=== PATIENT | female | born 1950 | race Caucasian/White ===

== ENCOUNTER 2018-09-25 17:26 | Inpatient (IN) | payer MEDICARE, OTHER ==
[~2018-09-25] VITALS: Ht 160 cm; Wt 54.0 kg
[2018-09-25] MEDS ORDERED: PROPRANOLOL (17:39)
[2018-09-25] MEDS ORDERED: MIRT15TA PO (17:39)
[2018-09-25] MEDS ORDERED: LOSARTAN/HCTZ (17:39)
[2018-09-25] MEDS ORDERED: RISP2TAB5 PO (17:39)
--- NOTE | 2018-09-25 17:40 | NUR ---
Pt was triaged and currently waiting in the ambulance gurney in the hallway, there are no ER beds available at this time.
--- NOTE | 2018-09-25 17:54 | NUR ---
PT PLACED IN ROOM 3, SECURITY CALLED FOR 1:1 OBSERVATION.
--- NOTE | 2018-09-25 17:56 | NUR ---
ECOMMERCE ANALYST AT BEDSIDE FOR 1:1 OBSERVATION.
[2018-09-25 18:32] LABS: BASOPHILS # (AUTO) 0.1 K/uL (0.0-8.0); BASOPHILS % (AUTO) 0.4 % (0.0-2.0); EOSINOPHILS % (AUTO) 0.3 % (0.0-7.0); HEMOGLOBIN 13.7 g/dL (10.9-14.3); LYMPHOCYTES % (AUTO) 15.3 % (20.5-51.5); MEAN CORPUSCULAR HGB CONC 31 g/dL (32.3-35.6); MEAN CORPUSCULAR VOLUME 70.6 fL (75.5-95.3); MONOCYTES # (AUTO) 0.9 K/uL (2.0-10.0); MONOCYTES % (AUTO) 7.1 % (0.0-11.0); NEUTROPHILS % (AUTO) 76.9 % (38.5-71.5); PLATELET COUNT (AUTO) 388 K/uL (179-408); RED BLOOD CELL COUNT(AUTO) 6.23 MIL/uL (3.63-4.92)
[2018-09-25 18:36] LABS: CARBON DIOXIDE 25 mmol/L (21-32); CHLORIDE 102 mmol/L (98-107); CREATININE 1.3 mg/dL (0.6-1.3); GLUCOSE 144 mg/dL (74-106); POTASSIUM 3.3 mmol/L (3.5-5.1); UREA NITROGEN, BLOOD 17 mg/dL (7-18)
[2018-09-25 18:41] LABS: ALANINE AMINOTRANSFERASE 20 U/L (14-59); ALKALINE PHOSPHATASE 72 U/L (50-136); ASPARTATE AMINOTRANSFERASE 19 U/L (15-37); BILIRUBIN,DIRECT 0.2 mg/dL (0.0-0.2); BILIRUBIN,TOTAL 0.6 mg/dL (0.2-1.0)
[2018-09-25 18:42] LABS: ACETAMINOPHEN < 2.0 ug/mL (10-30)
[2018-09-25 18:43] LABS: ETHANOL < 3 MG/DL (0-0)
[2018-09-25] MEDS ORDERED: POTASSIUM CHLORIDE 20 MEQ TAB.PRT.SR ONE (18:50)
--- NOTE | 2018-09-25 18:54 | NUR ---
ADMITTING REPORT GIVEN TO TONYA CHEN.
--- NOTE | 2018-09-25 18:54 | NUR ---
Pt. admitted to GPS, under care of Dr. CASTILLO/CASH. Belongs List completed
[2018-09-25] MEDS ORDERED: POTASSIUM CHLORIDE 20 MEQ TAB.PRT.SR PO ONE (19:00)
--- NOTE | 2018-09-25 19:35 | NUR ---
GPS:Pt. Admitted 68 year old black female to GPS, under care of Dr. CASTILLO/CASH for 5150/dto. alert to name only. confused to place and time. refused v/s. uncooperative with medications and care. refused body check. refused to answer admitting questions. assisted in bed.bed alarm on for safety. Belongs List completed. continue plan of care.
[2018-09-25] MEDS ORDERED: MAGNESIUM HYDROXIDE 30 ML LIQUID UDC PO PRN (20:30)
[2018-09-25] MEDS ORDERED: ACETAMINOPHEN 325 MG TABLET PO PRN (20:30)
[2018-09-25] MEDS ORDERED: MAG HYDROX/AL HYDROX/SIMETH 30 ML LIQUID UDC PO PRN (20:30)
[2018-09-25] MEDS ORDERED: LORAZEPAM 1 MG TABLET PO PRN (20:30)
[2018-09-25] MEDS ORDERED: ZOLPIDEM 5 MG TABLET PO PRN (20:30)
--- NOTE | 2018-09-26 06:36 | NUR ---
GPS: Remain uncooperative with care and v/s. wondering around in her room. confused and forgetful. slept 7:15 hrs through the night. no agitation noted this morning. continue plan of care.
[2018-09-26 07:11] LABS: BASOPHILS # (AUTO) 0.2 K/uL (0.0-8.0); BASOPHILS % (AUTO) 1.2 % (0.0-2.0); EOSINOPHILS # (AUTO) 0.1 K/uL (0.0-0.7); EOSINOPHILS % (AUTO) 0.5 % (0.0-7.0); HEMATOCRIT 45.9 % (31.2-41.9); HEMOGLOBIN 14.3 g/dL (10.9-14.3); LYMPHOCYTES % (AUTO) 21.4 % (20.5-51.5); MEAN CORPUSCULAR HEMOGLOBIN 22.2 uug (24.7-32.8); MEAN CORPUSCULAR HGB CONC 31 g/dL (32.3-35.6); MEAN CORPUSCULAR VOLUME 71.1 fL (75.5-95.3); MONOCYTES % (AUTO) 7.1 % (0.0-11.0); NEUTROPHILS # (AUTO) 9.8 K/uL (1.8-8.9); NEUTROPHILS % (AUTO) 69.8 % (38.5-71.5); PLATELET COUNT (AUTO) 387 K/uL (179-408); RED BLOOD CELL COUNT(AUTO) 6.46 MIL/uL (3.63-4.92)
[2018-09-26 07:23] LABS: CREATININE 1.2 mg/dL (0.6-1.3); POTASSIUM 3.7 mmol/L (3.5-5.1)
[2018-09-26 07:30] VITALS: BP 138/67
[2018-09-26 10:04] LABS: BAND % (MANUAL) 2 % (0-10); EOSINOPHILS % (MANUAL) 1 % (0-8); LYMPHOCYTES % (MANUAL) 24 % (20-40); MONOCYTES % (MANUAL) 7 % (2-10); MYELOCYTES % 1 % (0-0); NEUTROPHILS % (MANUAL) 65 % (42-75)
[2018-09-26] MEDS: ESCITALOPRAM OXALATE 10 MG TABLET PO SCH (10:11)
[2018-09-26] MEDS: LOSARTAN POTASSIUM 50 MG TABLET PO SCH (10:13)
--- NOTE | 2018-09-26 14:18 | NUR ---
Initial Discharge Instructions: Patient currently lives at home with her daughter [[address], [address] [place] [address]; [phone]]. Per patient, she would like to return there upon discharge. SW will speak with patient's daughter, Maulik ([phone]). LENIN will continue to collaborate with pt, family, and MD regarding most appropriate discharge plans for this patient. SW will form a safe and proper discharge.
--- NOTE | 2018-09-26 15:33 | NUR ---
Firearms Report: track service worker completed and submitted [employer] Firearms Report for 5150 DTO certification.
[2018-09-26 16:00] VITALS: BP 113/68
--- NOTE | 2018-09-26 17:43 | NUR ---
Pt has been hypoactive with limited peer interaction. She was guarded upon approach at start of shift but become increasingly trustful and comfortable talking to staff as the day progressed.Affect is flat be smiles briefly when verbally engaged. She is compliant with po medication .Tolerated medication with no side effect noted or discomfort voiced by patient. She however has limited insight into her illness. has present no behavioral or management issues.
[2018-09-26 20:00] VITALS: BP 142/73
[2018-09-26] MEDS: QUETIAPINE FUMARATE 25 MG TABLET PO SCH (20:19)
[2018-09-27 07:30] VITALS: BP 95/69
[2018-09-27] MEDS: ESCITALOPRAM OXALATE 10 MG TABLET PO SCH (09:00)
[2018-09-27] MEDS: LOSARTAN POTASSIUM 50 MG TABLET PO SCH (09:01)
[2018-09-27 16:04] VITALS: BP 108/54
[2018-09-27] MEDS: QUETIAPINE FUMARATE 25 MG TABLET PO SCH (21:14)
[2018-09-27 21:18] VITALS: BP 135/67
[2018-09-28 07:30] VITALS: BP 124/61
[2018-09-28] MEDS: LOSARTAN POTASSIUM 50 MG TABLET PO SCH (09:09)
[2018-09-28] MEDS: ESCITALOPRAM OXALATE 10 MG TABLET PO SCH (09:09)
[2018-09-28 15:53] VITALS: BP 124/67
[2018-09-28 19:57] VITALS: BP 151/69
[2018-09-28] MEDS: QUETIAPINE FUMARATE 25 MG TABLET PO SCH (20:17)
[2018-09-29 07:30] VITALS: BP 122/60
[2018-09-29] MEDS: ESCITALOPRAM OXALATE 10 MG TABLET PO SCH (08:32)
[2018-09-29] MEDS: LOSARTAN POTASSIUM 50 MG TABLET PO SCH (08:33)
[2018-09-29] MEDS: METFORMIN HCL 500 MG TABLET PO SCH ×2 (09:42→18:11)
[2018-09-29 10:23] LABS: *BILIRUBIN,URIN NEGATIVE (NEGATIVE); *BLOOD, URINE NEGATIVE (NEGATIVE); *COLOR,URINE YELLOW (YELLOW); *KETONES,URINE NEGATIVE (NEGATIVE); *UROBILINOGEN,URINE 0.2 E.U./dl (NORMAL); LEUKOCYTE ESTERASE ,URINE 2+ (NEGATIVE); NITRITE, URINE NEGATIVE (NEGATIVE); PH,URINE 8.5 (5.0-8.0); UGLUCOSE TRACE (NEGATIVE)
[2018-09-29 10:36] LABS: *CLARITY,URINE HAZY (CLEAR)
[2018-09-29 10:39] LABS: WBC,URINE 80-100 /HPF (0-3)
[2018-09-29 10:41] LABS: BACTERIA,URINE FEW /HPF (NONE SEEN); MUCUS,URINE NONE SEEN /LPF (0-FEW); SQUAMOUS EPITHELIAL CELL,UR MANY /HPF (NONE SEEN)
[2018-09-29 14:18] LABS: BASOPHILS # (AUTO) 0.2 K/uL (0.0-8.0); BASOPHILS % (AUTO) 1.6 % (0.0-2.0); EOSINOPHILS # (AUTO) 0.1 K/uL (0.0-0.7); EOSINOPHILS % (AUTO) 0.5 % (0.0-7.0); HEMATOCRIT 44.4 % (31.2-41.9); HEMOGLOBIN 13.7 g/dL (10.9-14.3); LYMPHOCYTES # (AUTO) 2.5 K/uL (20.0-40.0); LYMPHOCYTES % (AUTO) 20.7 % (20.5-51.5); MEAN CORPUSCULAR HEMOGLOBIN 22.1 uug (24.7-32.8); MEAN CORPUSCULAR HGB CONC 31 g/dL (32.3-35.6); MEAN CORPUSCULAR VOLUME 71.4 fL (75.5-95.3); MONOCYTES # (AUTO) 0.7 K/uL (2.0-10.0); MONOCYTES % (AUTO) 5.5 % (0.0-11.0); NEUTROPHILS # (AUTO) 8.7 K/uL (1.8-8.9); NEUTROPHILS % (AUTO) 71.7 % (38.5-71.5); PLATELET COUNT (AUTO) 362 K/uL (179-408); RED BLOOD CELL COUNT(AUTO) 6.22 MIL/uL (3.63-4.92); WHITE BLOOD COUNT (AUTO) 12.1 K/uL (3.8-11.8)
[2018-09-29 14:44] LABS: EOSINOPHILS % (MANUAL) 2 % (0-8); LYMPHOCYTES % (MANUAL) 10 % (20-40); MONOCYTES % (MANUAL) 6 % (2-10); NEUTROPHILS % (MANUAL) 82 % (42-75)
[2018-09-29 15:24] VITALS: BP 127/71
[2018-09-29 20:15] VITALS: BP 128/82
[2018-09-29] MEDS: QUETIAPINE FUMARATE 25 MG TABLET PO SCH (20:20)
--- NOTE | 2018-09-30 06:48 | NUR ---
ESTER Reyes notified through exchange regarding positive UA, awaiting call back.
[2018-09-30 07:30] VITALS: BP 144/72
[2018-09-30] MEDS: METFORMIN HCL 500 MG TABLET PO SCH ×2 (09:01→17:18)
[2018-09-30] MEDS: ESCITALOPRAM OXALATE 10 MG TABLET PO SCH (09:01)
[2018-09-30] MEDS: LOSARTAN POTASSIUM 50 MG TABLET PO SCH (09:02)
--- NOTE | 2018-09-30 14:23 | NUR ---
Discharge Planning Note: SW placed call to patient's daughterMaulik ([phone]) to discuss discharge planning. Pt daughter confirmed that patient will be able to return home with her when ready for discharge. Pt daughter expressed need for medication management for the pt, and SW provided education about Home Health services available to the pt. SW will arrange home health upon discharge. Daughter agreeable. SW will continue to follow-up.
[2018-09-30 16:23] VITALS: BP 155/81
[2018-09-30] MEDS ORDERED: INSULIN REGULAR, HUMAN 300 UNIT/3 ML VIAL SQ PRN (21:00)
[2018-09-30] MEDS ORDERED: DEXTROSE 50% 50 ML DISP.SYRIN IV PRN (21:00)
[2018-09-30] MEDS: QUETIAPINE FUMARATE 25 MG TABLET PO SCH (21:05)
[2018-09-30] MEDS: BLOOD SUGAR DIAGNOSTIC 1 EACH STRIP VI SCH (21:59)
[2018-09-30] MEDS: CEphaleXIN 500 MG CAPSULE PO SCH ×2 (22:00→22:24)
[2018-09-30] MEDS ORDERED: CEphaleXIN 500 MG CAPSULE ONE (22:20)
--- NOTE | 2018-10-01 05:32 | NUR ---
Received Pt sitting up in bed awake staring at the ceiling. A+Ox3 with poor insight into situation. Pt is guarded and gives limited disclosure. Exhibits restricted affect, appears depressed, paranoid, and internally preoccupied. Compliant with HS Seroquel with prompting. BP elevated at beginning of shift, Pt refused prn medication, Pt educated on risks and benefits, but still refused. Keflex 500mg ordered by MD for UTI, Pt refused. When asked why she refused, Pt replied, "I just need to think about it, maybe in the morning." Education provided regarding UTI disease process and the need for antibiotics to clear the infection, Pt still refused. Accu check ordered ACHS for A1C of 6.9. Pt educated regarding diabetes disease process. Pt refused HS accu check. At approximately 2300, Pt saw a caregiver that came in with a new admission and thought it was her daughter. Pt was convinced this person was her daughter and here to take her home. Pt was informed that it was not her daughter and there are no plans for discharge at this time, especially in the middle of the night. Pt refused to believe that she was not leaving and stood in the hallway for 3 hours with all of her belongings in her arms waiting to leave. Pt was educated about her discharge plan and encouraged to rest, but Pt refused until 0200 when she finally went to bed. Pt sleeping, breathing even and unlabored.
[2018-10-01] MEDS: CEphaleXIN 500 MG CAPSULE PO SCH ×3 (06:00→22:59)
[2018-10-01] MEDS: BLOOD SUGAR DIAGNOSTIC 1 EACH STRIP VI SCH ×4 (06:36→21:00)
--- NOTE | 2018-10-01 06:37 | NUR ---
Remains paranoid and in denial regarding disease process. Pt refused AM accu check, stated, "I am not diabetic." Pt also refused 0600 Keflex. chemist biological aware.
[2018-10-01 07:30] VITALS: BP 152/81
[2018-10-01] MEDS: METFORMIN HCL 500 MG TABLET PO SCH ×3 (08:00→18:20)
[2018-10-01] MEDS: ESCITALOPRAM OXALATE 10 MG TABLET PO SCH ×2 (09:00→10:54)
[2018-10-01] MEDS: LOSARTAN POTASSIUM 50 MG TABLET PO SCH (09:21)
[2018-10-01 16:00] VITALS: BP 131/55
[2018-10-01 20:00] VITALS: BP 152/68
[2018-10-01] MEDS: QUETIAPINE FUMARATE 25 MG TABLET PO SCH (21:00)
[2018-10-02] MEDS: CEphaleXIN 500 MG CAPSULE PO SCH ×3 (06:00→21:28)
[2018-10-02] MEDS: BLOOD SUGAR DIAGNOSTIC 1 EACH STRIP VI SCH ×4 (06:30→20:05)
[2018-10-02 07:27] LABS: BASOPHILS # (AUTO) 0.1 K/uL (0.0-8.0); BASOPHILS % (AUTO) 0.7 % (0.0-2.0); EOSINOPHILS % (AUTO) 0.3 % (0.0-7.0); HEMATOCRIT 40.7 % (31.2-41.9); HEMOGLOBIN 12.6 g/dL (10.9-14.3); LYMPHOCYTES # (AUTO) 1.8 K/uL (20.0-40.0); LYMPHOCYTES % (AUTO) 13.3 % (20.5-51.5); MEAN CORPUSCULAR HEMOGLOBIN 21.8 uug (24.7-32.8); MEAN CORPUSCULAR HGB CONC 31 g/dL (32.3-35.6); MEAN CORPUSCULAR VOLUME 70.4 fL (75.5-95.3); MONOCYTES # (AUTO) 0.9 K/uL (2.0-10.0); MONOCYTES % (AUTO) 6.6 % (0.0-11.0); NEUTROPHILS # (AUTO) 10.9 K/uL (1.8-8.9); NEUTROPHILS % (AUTO) 79.1 % (38.5-71.5); PLATELET COUNT (AUTO) 347 K/uL (179-408); RED BLOOD CELL COUNT(AUTO) 5.78 MIL/uL (3.63-4.92); WHITE BLOOD COUNT (AUTO) 13.7 K/uL (3.8-11.8)
[2018-10-02 07:30] VITALS: BP 162/78
[2018-10-02 07:49] LABS: BILIRUBIN,TOTAL 0.5 mg/dL (0.2-1.0); CREATININE 1.2 mg/dL (0.6-1.3); MAGNESIUM 1.7 mg/dL (1.8-2.4); POTASSIUM 4.1 mmol/L (3.5-5.1); TOTAL PROTEIN, SERUM 7.3 g/dL (6.4-8.2)
[2018-10-02 08:00] LABS: BAND % (MANUAL) 2 % (0-10); LYMPHOCYTES % (MANUAL) 21 % (20-40); MONOCYTES % (MANUAL) 5 % (2-10); NEUTROPHILS % (MANUAL) 72 % (42-75)
[2018-10-02] MEDS: METFORMIN HCL 500 MG TABLET PO SCH ×2 (09:17→17:58)
[2018-10-02] MEDS: ESCITALOPRAM OXALATE 10 MG TABLET PO SCH (09:17)
[2018-10-02] MEDS: LOSARTAN POTASSIUM 50 MG TABLET PO SCH (09:18)
[2018-10-02 09:39] LABS: THYROID STIMULATING HORMONE 2.265 mIU/mL (0.358-3.740)
[2018-10-02] MEDS ORDERED: CLONIDINE HCL 0.1 MG TABLET PO PRN (11:30)
[2018-10-02] MEDS ORDERED: MAGNESIUM OXIDE 400 MG TABLET PO ONE (11:30)
[2018-10-02] MEDS: FERROUS SULFATE 325 MG TABEC PO SCH (12:43)
[2018-10-02 16:00] VITALS: BP 133/73
[2018-10-02 20:00] VITALS: BP 119/74
[2018-10-02] MEDS: SIMVASTATIN 10 MG TABLET PO SCH (20:10)
[2018-10-02] MEDS: QUETIAPINE FUMARATE 25 MG TABLET PO SCH (20:10)
[2018-10-03] MEDS: CEphaleXIN 500 MG CAPSULE PO SCH ×3 (05:28→21:07)
[2018-10-03] MEDS: BLOOD SUGAR DIAGNOSTIC 1 EACH STRIP VI SCH ×4 (06:19→20:36)
[2018-10-03 07:30] VITALS: BP 143/64
[2018-10-03] MEDS: ESCITALOPRAM OXALATE 10 MG TABLET PO SCH (09:28)
[2018-10-03] MEDS: FERROUS SULFATE 325 MG TABEC PO SCH (09:28)
[2018-10-03] MEDS: LOSARTAN POTASSIUM 50 MG TABLET PO SCH (09:29)
[2018-10-03] MEDS: METFORMIN HCL 500 MG TABLET PO SCH ×2 (09:32→18:09)
[2018-10-03 16:00] VITALS: BP 131/65
[2018-10-03 20:21] VITALS: BP 145/70
[2018-10-03] MEDS: SIMVASTATIN 10 MG TABLET PO SCH (20:31)
[2018-10-03] MEDS: QUETIAPINE FUMARATE 25 MG TABLET PO SCH (20:31)
[2018-10-04] MEDS: CEphaleXIN 500 MG CAPSULE PO SCH ×4 (05:55→21:06)
[2018-10-04 07:30] VITALS: BP 129/76
[2018-10-04] MEDS: METFORMIN HCL 500 MG TABLET PO SCH ×2 (08:00→17:30)
[2018-10-04] MEDS: FERROUS SULFATE 325 MG TABEC PO SCH (09:56)
[2018-10-04] MEDS: LOSARTAN POTASSIUM 50 MG TABLET PO SCH (09:56)
[2018-10-04] MEDS: ESCITALOPRAM OXALATE 10 MG TABLET PO SCH (09:56)
[2018-10-04 20:49] VITALS: BP 143/74
[2018-10-04] MEDS: QUETIAPINE FUMARATE 25 MG TABLET PO SCH (21:07)
[2018-10-04] MEDS: SIMVASTATIN 10 MG TABLET PO SCH (21:07)
[2018-10-05] MEDS: CEphaleXIN 500 MG CAPSULE PO SCH ×3 (05:15→21:47)
[2018-10-05 07:30] VITALS: BP 126/66
[2018-10-05] MEDS: ESCITALOPRAM OXALATE 10 MG TABLET PO SCH (10:21)
[2018-10-05] MEDS: LOSARTAN POTASSIUM 50 MG TABLET PO SCH (10:21)
[2018-10-05] MEDS: METFORMIN HCL 500 MG TABLET PO SCH ×2 (10:21→17:41)
[2018-10-05] MEDS: FERROUS SULFATE 325 MG TABEC PO SCH (10:21)
[2018-10-05 16:43] VITALS: BP 121/86
[2018-10-05 20:27] VITALS: BP 126/76
[2018-10-05] MEDS: SIMVASTATIN 10 MG TABLET PO SCH (21:00)
[2018-10-05] MEDS: QUETIAPINE FUMARATE 25 MG TABLET PO SCH (21:00)
--- NOTE | 2018-10-05 23:00 | NUR ---
RECEIVED RESIDENT IN BED.SHE APPEARED GUARDED,WITHDRAWN AND DEPRESSED. REFUSED TO ENGAGE WITH STAFF AND REFUSED HER MEDS WELL. FOR UTI.SHE SAID 'I DON'T CARE'.RISKS AND BENEFIT X 3 WAS EXPLAINED TO HER ESPECIALLY REGARDING THE KEFLEX.VISUAL CHECKS MADE TO HER ROOM FOR SAFETY. WILL CONTINUE TO MONITOR.
[2018-10-06] MEDS: CEphaleXIN 500 MG CAPSULE PO SCH ×2 (06:00→08:58)
--- NOTE | 2018-10-06 06:40 | NUR ---
SLEPT FOR APPROX.10;30HRS.REFUSED ALL MEDS. SAT IN BED THIS MORNING THOUGH SHE WAS IN MEDITATION.
[2018-10-06] MEDS: METFORMIN HCL 500 MG TABLET PO SCH ×2 (08:00→17:46)
[2018-10-06] MEDS: ESCITALOPRAM OXALATE 10 MG TABLET PO SCH (08:37)
[2018-10-06] MEDS: FERROUS SULFATE 325 MG TABEC PO SCH (08:38)
[2018-10-06] MEDS: LOSARTAN POTASSIUM 50 MG TABLET PO SCH ×2 (08:38→15:27)
--- NOTE | 2018-10-06 15:06 | NUR ---
GPS: Nursing Notes: Thought Disorder: Patient is awake and responding to her name, internally preoccupied by doing bizarre behaviors, running around the chair, laying down on the floor and then sitting on the chair, when questioned regarding her behavior, patient started to stare at the ceiling and moving her lips, and then shouted "stopped...", during therapeutic group started to bump her head against the table while coloring, medicated with Ativan PO PRN, continue to monitor for safety, on mendez chair near the nursing station for close observation, patient continue to be shouting "Help....Help...", but would not say anything else, psychotic behavior, restless behavior, continue to monitor for safety, continue with treatment plan.
[2018-10-06] MEDS: LEVOFLOXACIN 250 MG TABLET PO SCH (15:26)
[2018-10-06] MEDS ORDERED: OLANZAPINE 10 MG VIAL IM STA ×3 (15:46→16:04)
--- NOTE | 2018-10-06 16:17 | NUR ---
GPS: Nursing Notes: Chemical Restraint: Patient is awake and responding to her name, impaired judgment, responding to internal stimuli by doing bizarre behavior, running around the chair, laying down on the floor, then getting up and sitting on the chair, when questioned regarding her behavior, patient would stare at the ceiling, selectively mute to questions, but overly disruptive by shouting "Help..Help..", placed near the nursing station on the mendez chair, patient continue to try to bump her head against the table, sitting back hard against the mendez chair, unable to be redirected, restless behavior, unable to contract for safety, Dr Valdivia called and ordered Zyprexa 10mg IM STAT, medication IM given at this time, V/S: 156/76, 117, 98%, 0/10, 18, 98.0, continue to monitor for safety, continue with treatment plan.
[2018-10-06 20:00] VITALS: BP 116/66
[2018-10-06] MEDS: SIMVASTATIN 10 MG TABLET PO SCH (21:41)
[2018-10-06] MEDS: QUETIAPINE FUMARATE 25 MG TABLET PO SCH (21:41)
[2018-10-07 07:22] LABS: BASOPHILS # (AUTO) 0.1 K/uL (0.0-8.0); BASOPHILS % (AUTO) 0.7 % (0.0-2.0); EOSINOPHILS # (AUTO) 0.1 K/uL (0.0-0.7); EOSINOPHILS % (AUTO) 0.5 % (0.0-7.0); HEMOGLOBIN 14.1 g/dL (10.9-14.3); LYMPHOCYTES # (AUTO) 1.8 K/uL (20.0-40.0); LYMPHOCYTES % (AUTO) 15.9 % (20.5-51.5); MEAN CORPUSCULAR HEMOGLOBIN 22.2 uug (24.7-32.8); MEAN CORPUSCULAR HGB CONC 31 g/dL (32.3-35.6); MONOCYTES # (AUTO) 0.8 K/uL (2.0-10.0); MONOCYTES % (AUTO) 7.2 % (0.0-11.0); NEUTROPHILS # (AUTO) 8.4 K/uL (1.8-8.9); NEUTROPHILS % (AUTO) 75.7 % (38.5-71.5); PLATELET COUNT (AUTO) 432 K/uL (179-408); RED BLOOD CELL COUNT(AUTO) 6.34 MIL/uL (3.63-4.92); WHITE BLOOD COUNT (AUTO) 11.1 K/uL (3.8-11.8)
[2018-10-07 07:30] VITALS: BP 122/79
[2018-10-07 07:33] LABS: BILIRUBIN,TOTAL 0.5 mg/dL (0.2-1.0); CREATININE 1.2 mg/dL (0.6-1.3); MAGNESIUM 1.8 mg/dL (1.8-2.4); PHOSPHOROUS 2.6 mg/dL (2.5-4.9); POTASSIUM 3.8 mmol/L (3.5-5.1); TOTAL PROTEIN, SERUM 7.6 g/dL (6.4-8.2)
[2018-10-07 07:58] LABS: BAND % (MANUAL) 2 % (0-10); EOSINOPHILS % (MANUAL) 1 % (0-8); LYMPHOCYTES % (MANUAL) 23 % (20-40); MONOCYTES % (MANUAL) 9 % (2-10); NEUTROPHILS % (MANUAL) 65 % (42-75)
[2018-10-07] MEDS: ESCITALOPRAM OXALATE 10 MG TABLET PO SCH (08:56)
[2018-10-07] MEDS: FERROUS SULFATE 325 MG TABEC PO SCH (08:56)
[2018-10-07] MEDS: METFORMIN HCL 500 MG TABLET PO SCH ×2 (08:56→18:21)
[2018-10-07] MEDS: LOSARTAN POTASSIUM 50 MG TABLET PO SCH (08:57)
[2018-10-07] MEDS: DIVALPROEX SPRINKLE 125 MG CAP.SPRINK PO SCH ×2 (09:00→20:48)
[2018-10-07] MEDS: LEVOFLOXACIN 250 MG TABLET PO SCH (13:07)
[2018-10-07 15:44] VITALS: BP 99/60
[2018-10-07] MEDS: QUETIAPINE FUMARATE 100 MG TABLET PO SCH (20:48)
[2018-10-07] MEDS: SIMVASTATIN 10 MG TABLET PO SCH (20:48)
[2018-10-07 20:56] VITALS: BP 103/63
[2018-10-07] MEDS ORDERED: QUETIAPINE FUMARATE 25 MG TABLET PO SCH (21:00)
[2018-10-08 07:30] VITALS: BP 117/57
[2018-10-08] MEDS: LOSARTAN POTASSIUM 50 MG TABLET PO SCH (09:00)
[2018-10-08] MEDS: FERROUS SULFATE 325 MG TABEC PO SCH (09:46)
[2018-10-08] MEDS: DIVALPROEX SPRINKLE 125 MG CAP.SPRINK PO SCH ×2 (09:46→20:15)
[2018-10-08] MEDS: ESCITALOPRAM OXALATE 10 MG TABLET PO SCH (09:46)
[2018-10-08] MEDS: METFORMIN HCL 500 MG TABLET PO SCH ×2 (09:46→16:58)
--- NOTE | 2018-10-08 10:37 | NUR ---
Discharge Planning Note: SW attempted to contact patient's daughter, Maulik ([phone]) to discuss discharge planning. There was no answer, and LENIN left a message for a return call. LENIN will continue to follow-up.
[2018-10-08] MEDS: LEVOFLOXACIN 250 MG TABLET PO SCH (13:25)
[2018-10-08 16:00] VITALS: BP 112/67
--- NOTE | 2018-10-08 17:48 | NUR ---
REFUSED EVENING METFORMIN
[2018-10-08 20:00] VITALS: BP 103/66
[2018-10-08] MEDS: QUETIAPINE FUMARATE 100 MG TABLET PO SCH (20:15)
[2018-10-08] MEDS: SIMVASTATIN 10 MG TABLET PO SCH (20:15)
[2018-10-09 07:30] VITALS: BP_SYST 100; BP_SYST 119; BP_DIAS 62; BP_DIAS 67
[2018-10-09] MEDS: METFORMIN HCL 500 MG TABLET PO SCH ×2 (08:00→17:12)
[2018-10-09] MEDS: ESCITALOPRAM OXALATE 10 MG TABLET PO SCH (08:47)
[2018-10-09] MEDS: LOSARTAN POTASSIUM 50 MG TABLET PO SCH (08:47)
[2018-10-09] MEDS: DIVALPROEX SPRINKLE 125 MG CAP.SPRINK PO SCH ×2 (08:47→20:37)
[2018-10-09] MEDS: FERROUS SULFATE 325 MG TABEC PO SCH (08:47)
--- NOTE | 2018-10-09 09:00 | NUR ---
Received patient asleep, arouses when name is called. Alert x2-3. Not in any form of distress. Patient withdrawn. Refused Metformin, said she does not need it. Discussed risks and benefits but patient still refused.
--- NOTE | 2018-10-09 10:29 | NUR ---
Discharge Planning Note: LENIN placed call to patient's daughterMaulik ([phone]) to discuss discharge planning. Informed daughter of tentative discharge for the patient tomorrow (10/10/18). Pt's daughter agreeable with discharge. Per daughter, she does not have a car and will not be home to receive the patient until 8pm tomorrow. SW informed daughter that the hospital will be able to arrange transportation for the patient tomorrow. Daughter agreeable. Daughter inquired about Home Health medication management for the patient. SW provided education about home health services, and dtr reports she would be interested in medication management for the pt, as pt has history of cheeking. LENIN placed call to [facility] (ph. [phone]; f. [phone]) and spoke with Bhavani in intake. Per Bhavani, they do service the area in which the patient lives. LENIN faxed over a referral. SW awaiting response from [email or web address]. LENIN will continue to follow-up.
[2018-10-09 16:27] VITALS: BP 101/70
[2018-10-09] MEDS: QUETIAPINE FUMARATE 100 MG TABLET PO SCH (20:37)
[2018-10-09] MEDS: SIMVASTATIN 10 MG TABLET PO SCH (20:37)
[2018-10-09 21:05] VITALS: BP 124/65
--- NOTE | 2018-10-09 22:00 | NUR ---
received to care, lying in bed, isolative, but pleasant upon approach. compliant with medications, and staff direction. as of 0, she appears to be asleep. no distress noted. will continue to monitor closely.
[2018-10-10] MEDS: METFORMIN HCL 500 MG TABLET PO SCH ×2 (08:00→17:34)
[2018-10-10] MEDS: FERROUS SULFATE 325 MG TABEC PO SCH (09:00)
[2018-10-10] MEDS: DIVALPROEX SPRINKLE 125 MG CAP.SPRINK PO SCH ×2 (09:00→20:40)
[2018-10-10] MEDS: ESCITALOPRAM OXALATE 10 MG TABLET PO SCH (09:00)
[2018-10-10] MEDS: LOSARTAN POTASSIUM 50 MG TABLET PO SCH (09:00)
[2018-10-10] MEDS ORDERED: OLANZAPINE 10 MG VIAL IM ONE (11:00)
--- NOTE | 2018-10-10 11:31 | NUR ---
Discharge planning note: Patient was scheduled to discharge today, but it has been cancelled by Dr. Valdivia due to patient behavior. Patient began acting out; yelling and screaming at staff requiring an IM of Zyprexa 5mg. Patient has refused all AM medications and vitals. Patient was refusing to come out of the bathroom for long period of time. Due to this behavior, patient will not be discharged today. Patient daughter, Maulik ([phone]), has been notified by this typewriter assembly and parts inspector that discharge is cancelled. contact worker facilitated conversation with Maulik about prison placement for patient. Maulik was at first apprehensive about nursing facility, but eventually agreed to consider placement. contact worker will work on finding possible prison placement for patient and provide Maulik with options. Maulik agreeable to plan. contact worker will follow-up with Maulik when placement has been found.
--- NOTE | 2018-10-10 12:35 | NUR ---
Discharge planning note: adoption worker faxed referral to [facility] [[address] [place] [address]; ]. Per field care coordinator, SHILA, he will notify this junior underwriter of acceptance. Addendum: 10/10/18 at 1430 by ANTHONY BUSH Per field care coordinator, SHILA, patient has been accepted at [facility] and at their sister facility [facility] [[address] [place] [address]; ]. adoption worker has informed patient daughter, Maulik [[phone]] of accepting facilities.
[2018-10-10 20:00] VITALS: BP 148/82
[2018-10-10] MEDS: QUETIAPINE FUMARATE 100 MG TABLET PO SCH (20:40)
[2018-10-10] MEDS: SIMVASTATIN 10 MG TABLET PO SCH (20:40)
--- NOTE | 2018-10-10 22:30 | NUR ---
pt was received to care, lying in bed, isolative, but pleasant upon approach. refused all medications, food, and staff direction. as of 2229, she appears to be asleep. no distress noted. will continue to monitor closely.
[2018-10-11] MEDS: LOSARTAN POTASSIUM 50 MG TABLET PO SCH (09:00)
[2018-10-11] MEDS: ESCITALOPRAM OXALATE 10 MG TABLET PO SCH (09:58)
[2018-10-11] MEDS: DIVALPROEX SPRINKLE 125 MG CAP.SPRINK PO SCH ×2 (09:58→21:46)
[2018-10-11] MEDS: METFORMIN HCL 500 MG TABLET PO SCH ×2 (09:58→18:07)
[2018-10-11] MEDS: FERROUS SULFATE 325 MG TABEC PO SCH (09:59)
[2018-10-11 16:00] VITALS: BP 115/76
[2018-10-11 20:00] VITALS: BP 118/71
[2018-10-11] MEDS: SIMVASTATIN 10 MG TABLET PO SCH (21:46)
[2018-10-11] MEDS: QUETIAPINE FUMARATE 100 MG TABLET PO SCH (21:46)
[2018-10-12 07:30] VITALS: BP 113/62
[2018-10-12] MEDS: METFORMIN HCL 500 MG TABLET PO SCH ×2 (08:00→17:48)
[2018-10-12] MEDS: FERROUS SULFATE 325 MG TABEC PO SCH (09:00)
[2018-10-12] MEDS: ESCITALOPRAM OXALATE 10 MG TABLET PO SCH (09:00)
[2018-10-12] MEDS: LOSARTAN POTASSIUM 50 MG TABLET PO SCH (09:00)
[2018-10-12] MEDS: DIVALPROEX SPRINKLE 125 MG CAP.SPRINK PO SCH ×2 (09:00→21:00)
--- NOTE | 2018-10-12 09:32 | NUR ---
Ebonie refused all meds in spite of all encouragement.
[2018-10-12 15:43] VITALS: BP 111/61
[2018-10-12 20:00] VITALS: BP 124/64
[2018-10-12] MEDS: QUETIAPINE FUMARATE 100 MG TABLET PO SCH (21:00)
[2018-10-12] MEDS: SIMVASTATIN 10 MG TABLET PO SCH (21:00)
--- NOTE | 2018-10-13 06:40 | NUR ---
Spoke with Daughter Maulik Child regarding Ebonie and her refusal of her P.M. medications. Daughter is requesting to speak with a member of her mothers care team after the doctor has rounded on her today. Will endorse to oncoming nurse. Maulik [phone]
[2018-10-13 07:30] VITALS: BP 130/65
[2018-10-13] MEDS: METFORMIN HCL 500 MG TABLET PO SCH ×2 (08:00→18:00)
[2018-10-13] MEDS: FERROUS SULFATE 325 MG TABEC PO SCH (09:00)
[2018-10-13] MEDS: LOSARTAN POTASSIUM 50 MG TABLET PO SCH (09:00)
[2018-10-13] MEDS: DIVALPROEX SPRINKLE 125 MG CAP.SPRINK PO SCH ×2 (09:06→20:15)
--- NOTE | 2018-10-13 14:51 | NUR ---
Social Work: Social work received voicemail from Shadi from [facility] Address: [address] [place] [address] . Social work returned Shadi and spoke with Krista, pt has been accepted to facility.
--- NOTE | 2018-10-13 15:42 | NUR ---
Social Work discharge planning: Tube Cutter faxed pt's clinical to [facility] address [address], [address]. .
[2018-10-13] MEDS: QUETIAPINE FUMARATE 100 MG TABLET PO SCH (20:15)
[2018-10-13] MEDS: SIMVASTATIN 10 MG TABLET PO SCH (20:16)
--- NOTE | 2018-10-14 06:32 | NUR ---
GPS: Nursing Notes: Hours of Sleep: Patient slept 6 hours and 30 minutes.
[2018-10-14] MEDS: METFORMIN HCL 500 MG TABLET PO SCH ×2 (08:00→18:00)
[2018-10-14] MEDS: FERROUS SULFATE 325 MG TABEC PO SCH (09:00)
[2018-10-14] MEDS: DIVALPROEX SPRINKLE 125 MG CAP.SPRINK PO SCH ×3 (09:00→20:49)
[2018-10-14] MEDS: LOSARTAN POTASSIUM 50 MG TABLET PO SCH (09:00)
[2018-10-14] MEDS: QUETIAPINE FUMARATE 100 MG TABLET PO SCH ×2 (20:04→20:49)
[2018-10-14] MEDS: SIMVASTATIN 10 MG TABLET PO SCH ×2 (20:04→20:49)
--- NOTE | 2018-10-14 20:15 | NUR ---
GPS Nursing Note: Rec'd pt in bed awake, talking to herself. No s/s of acute distress noted. Refused HS meds as ordered. Attempted to offer again however became agitated and demanded her right to refuse. Educated on risks vs benefits of her meds but gestured for me to leave. All safety precautions in place. Will cont to monitor.
--- NOTE | 2018-10-15 06:47 | NUR ---
GPS Nursing Note: Pt slept x0 hrs. Noted standing in the hallways during the night and having delusions of her daughter as a small child walking along side her. Unable to redirect back to her room. No s/s of acute distress noted. All safety precautions in place. Will endorse to oncoming shift.
[2018-10-15 07:30] VITALS: BP 159/93
[2018-10-15] MEDS ORDERED: OLANZAPINE 5 MG TABLET PO SCH (09:00)
[2018-10-15] MEDS: METFORMIN HCL 500 MG TABLET PO SCH ×2 (09:58→17:59)
[2018-10-15] MEDS: DIVALPROEX SPRINKLE 125 MG CAP.SPRINK PO SCH ×2 (09:58→20:21)
[2018-10-15] MEDS: FERROUS SULFATE 325 MG TABEC PO SCH (09:58)
[2018-10-15] MEDS: OLANZAPINE ZYDIS 5 MG TAB.RAPDIS PO SCH ×2 (09:59→20:21)
[2018-10-15] MEDS: LOSARTAN POTASSIUM 50 MG TABLET PO SCH (10:01)
--- NOTE | 2018-10-15 10:03 | NUR ---
Patient been refusing medications for several days now. Today, morning medications been offered to patient several times, patient kept on delaying, explained the risk and benifets of each medication. Dr. Valdivia made his visit and talk to patient and agreed to take the med. Patient finally took meds with lots of prompting.
[2018-10-15 16:00] VITALS: BP 117/72
[2018-10-15] MEDS: SIMVASTATIN 10 MG TABLET PO SCH (20:21)
[2018-10-15 20:29] VITALS: BP 134/70
[2018-10-16 07:30] VITALS: BP 117/71
[2018-10-16] MEDS: OLANZAPINE ZYDIS 5 MG TAB.RAPDIS PO SCH ×2 (08:58→20:03)
[2018-10-16] MEDS: DIVALPROEX SPRINKLE 125 MG CAP.SPRINK PO SCH ×2 (08:58→20:03)
[2018-10-16] MEDS: FERROUS SULFATE 325 MG TABEC PO SCH (08:58)
[2018-10-16] MEDS: LOSARTAN POTASSIUM 50 MG TABLET PO SCH (08:59)
[2018-10-16] MEDS: METFORMIN HCL 500 MG TABLET PO SCH ×2 (09:00→18:14)
--- NOTE | 2018-10-16 14:52 | NUR ---
Discharge Planning Note: LENIN consulted with Dr. Valdivia who stated that patient could potentially be discharged early next week. SW placed phone call to patient's daughter, Maulik Child ([phone]) to discuss discharge planning. Informed daughter of potential discharge date, and daughter expressed gratitude. SW discussed with daughter the patient's SNF placement options and explored options with her. LENIN informed daughter that the patient has been accepted to [facility] [Address: [address] [place] [address]; ]; [facility] [Address: [address] [place] [address]; ]; and [facility] [Address: [address] [place] [address]; ]. Daughter reports that she would like a SNF that is closer to the [place]; however, she did verbalize understanding that patient can be placed at facilities already accepting her. LENIN faxed SNF Inquiries to the following facilities: [facility] [p. [phone]; [phone]] Attn: Reina Peterson [p. [phone]; f. [phone]] Attn: [facility] [p.[phone]; f. [phone]] Attn: Emily PHELPS awaiting response from facilities. LENIN will continue to follow-up.
[2018-10-16 16:00] VITALS: BP 119/63
[2018-10-16] MEDS: SIMVASTATIN 10 MG TABLET PO SCH (20:03)
[2018-10-16 20:36] VITALS: BP 122/69
[2018-10-17 07:30] VITALS: BP 113/58
[2018-10-17] MEDS: FERROUS SULFATE 325 MG TABEC PO SCH (08:19)
[2018-10-17] MEDS: METFORMIN HCL 500 MG TABLET PO SCH ×2 (08:19→18:07)
[2018-10-17] MEDS: DIVALPROEX SPRINKLE 125 MG CAP.SPRINK PO SCH ×2 (08:19→20:41)
[2018-10-17] MEDS: LOSARTAN POTASSIUM 50 MG TABLET PO SCH (08:20)
[2018-10-17] MEDS: OLANZAPINE ZYDIS 5 MG TAB.RAPDIS PO SCH ×2 (08:21→20:41)
--- NOTE | 2018-10-17 14:15 | NUR ---
1:00 pm- SW Cardiovascular Surgeon contacted and spoke with [facility][[address] [facility] [address]] compensation coordinator, Reina to inquire regarding patients admission to their facility. Per Reina, the patient has been accepted and may be DC-ed to [facility] when ready.
--- NOTE | 2018-10-17 14:16 | NUR ---
1:10 pm- SW Substation Superintendent contacted and spoke with Shaunna Peterson [facility] [[address] [facility] [address]] plastic surgery coordinator, Joshua to inquire regarding patients admission to their facility. Per Shaunna Lewis RN, Gloria will come assess patient today 10/17/18 and may provide us with an answer soon after.
--- NOTE | 2018-10-17 14:19 | NUR ---
1:20 pm- LENIN Instructional Specialist contacted [facility] [[address] [facility] [address]] client service coordinator, Lacie to inquire regarding patients admission to their facility. However, LENIN Instructional Specialist was not able to get a hold of Lacie and there was no one else in the facility to inform the SW Instructional Specialist regarding pt.s acceptance or denial to the facility nor a voicemail option. LENIN Reyes or other SW will continue attempts to reach Lacie.
--- NOTE | 2018-10-17 15:59 | NUR ---
barrow worker reached out to pts daughter Maulik ([phone]) regarding pts possible discharge facilities. barrow worker informed pts daughter Maulik that pt has been accepted to [facility] [facility] [address]] sustainable design coordinator, Reina . [facility] [[address] [facility] [address]] sustainable design coordinator, Joshua . [facility] is the closes to daughters requested location. Pt is also accepted to [facility] and at their sister facility [facility] [[address] [place] [address]; ]. Pt has also been accepted to [facility]. barrow worker will follow up with pt, pts daughter and MD regarding possible discharge date and location.
[2018-10-17 16:00] VITALS: BP 110/62
[2018-10-17 19:56] VITALS: BP 112/64
[2018-10-17] MEDS: SIMVASTATIN 10 MG TABLET PO SCH (20:41)
[2018-10-18 07:30] VITALS: BP 143/64
[2018-10-18] MEDS: DIVALPROEX SPRINKLE 125 MG CAP.SPRINK PO SCH ×2 (09:08→16:38)
[2018-10-18] MEDS: FERROUS SULFATE 325 MG TABEC PO SCH (09:08)
[2018-10-18] MEDS: OLANZAPINE ZYDIS 5 MG TAB.RAPDIS PO SCH ×2 (09:08→20:53)
[2018-10-18] MEDS: LOSARTAN POTASSIUM 50 MG TABLET PO SCH (09:08)
[2018-10-18] MEDS: METFORMIN HCL 500 MG TABLET PO SCH ×2 (09:08→17:02)
[2018-10-18 16:00] VITALS: BP 134/64
[2018-10-18 20:17] VITALS: BP 120/73
[2018-10-18] MEDS: SIMVASTATIN 10 MG TABLET PO SCH (20:53)
--- NOTE | 2018-10-19 07:00 | NUR ---
PT SLEPT 9.0 HRS DURING SHIFT. TAKEN ALL ROUTINE MEDS. NO AGITATION OBSERVED.
[2018-10-19 07:30] VITALS: BP 125/63
[2018-10-19] MEDS: DIVALPROEX SPRINKLE 125 MG CAP.SPRINK PO SCH ×3 (08:53→16:51)
[2018-10-19] MEDS: METFORMIN HCL 500 MG TABLET PO SCH ×2 (08:53→17:36)
[2018-10-19] MEDS: FERROUS SULFATE 325 MG TABEC PO SCH (08:54)
[2018-10-19] MEDS: OLANZAPINE ZYDIS 5 MG TAB.RAPDIS PO SCH ×2 (08:54→20:02)
[2018-10-19] MEDS: LOSARTAN POTASSIUM 50 MG TABLET PO SCH (08:57)
[2018-10-19 16:00] VITALS: BP 95/69
[2018-10-19] MEDS: SIMVASTATIN 10 MG TABLET PO SCH (20:02)
[2018-10-19 20:30] VITALS: BP 112/70
[2018-10-20 08:30] VITALS: BP 121/84
[2018-10-20] MEDS: METFORMIN HCL 500 MG TABLET PO SCH (08:56)
[2018-10-20] MEDS: OLANZAPINE ZYDIS 5 MG TAB.RAPDIS PO SCH (08:56)
[2018-10-20] MEDS: FERROUS SULFATE 325 MG TABEC PO SCH (08:56)
[2018-10-20] MEDS: DIVALPROEX SPRINKLE 125 MG CAP.SPRINK PO SCH ×2 (08:56→13:00)
[2018-10-20 09:05] VITALS: BP 121/84
[2018-10-20] MEDS: LOSARTAN POTASSIUM 50 MG TABLET PO SCH (09:05)
--- NOTE | 2018-10-20 10:03 | NUR ---
fairing worker reached out to pts daughter Maulik ([phone]) regarding pts discharge.Pt is to be discharged today. Pts daughter has decided that she would like pt to be discharged to [facility] [[address] [address]; ]. fairing worker contacted intake and confirmed female bed is available. fairing worker will follow up with pt, pts daughter and MD regarding discharge time.
--- NOTE | 2018-10-20 10:09 | NUR ---
Discharge Note: Patient will be discharged to [facility] [Address: [place] [address]; [phone]] via ambulance transportation. Please arrange an ambulance for this patient. Spoke with Josh at the facility who states they are ready to accept the patient today. Spoke with patients daughter, Maulik Child ([phone]) who is aware and agreeable with discharge plans. Patient is alert and oriented x2-3 and is cooperative. Patient will follow-up at the facility with Dr. Dowell (Millinery Teacher) and Dr. Valdivia (Psychiatrist). Patient was also provided with outpatient mental health resources to [facility] Crisis Line , Esther Garcia , and the [facility] Suicide Prevention Lifeline . Per daughters request, she was provided with local support groups including: [facility] Telephone Support Group (592-448-0123) and the [facility] Family Support Group (708-543-1248).
--- NOTE | 2018-10-20 10:32 | NUR ---
GPS: Nursing Notes: MRSA Swap: Patient refusing MRSA swap for 21 days or more in the hospital, stated "No, I don't want to do it..", continue with treatment plan.
--- NOTE | 2018-10-20 13:02 | NUR ---
GPS: Nursing Notes: Discharge Notes: Patient to be discharge at 11:30 am, but refused to get into the ambulance, refusing to leave the unit, patient became angry and refused to move from her bed, charge nurse, nursing claims supervisor, security, pediatric social worker claims supervisor and patient's daughter Maulik were informed and they tried to convince patient to get into the gurney and leave the unit with the paramedics, patient became paranoid and resistant to be discharge, after patient talking to her daughter, Maulik and staff members for some time, patient agreed with discharge plans to go to [facility] at [address] [place] [address] , denies any SI/HI, denies any AH/VH, denies any pain or discomfort, denies any SOB, report given to Alexia, RN claims supervisor, took all her belongings with her, transported to facility via ambulance. detention worker spoke with patients daughter, Maulik Child ([phone]) who is aware and agreeable with discharge plans. Patient will follow-up at the facility with Dr. Dowell (Pizza Baker) and Dr. Valdivia (Psychiatrist). Patient was also provided with outpatient mental health resources to [facility] Crisis Line , Esther Garcia , and the National Suicide Prevention Lifeline . Per daughters request, she was provided with local support groups including: [facility] Telephone Support Group (610-125-1289) and the [facility] Family Support Group (646-317-7357).
== END 2018-10-20 13:02 | DRG 885 ==
LOC: ER 17:26 → GPS 18:55
PROVIDERS: ADMIT Psychiatry & Neurology Psychiatry
DX: F25.1 Schizoaffective disorder, depressive type (principal); E11.65 Type 2 diabetes mellitus with hyperglycemia; N39.0 Urinary tract infection, site not specified; Z85.3 Personal history of malignant neoplasm of breast; I10 Essential (primary) hypertension; E87.6 Hypokalemia; Z91.14 Patient's other noncompliance with medication regimen; Z79.899 Other long term (current) drug therapy; E61.1 Iron deficiency; B96.89 Other specified bacterial agents as the cause of diseases classified elsewhere; E87.5 Hyperkalemia; Z91.19 Patient's noncompliance with other medical treatment and regimen
CPT/HCPCS: 36415; 80164; 82652; 83550; 83735; 84100; 84443; 85025; 87086; 93005; A4663; G0480; G0480-TC; J1815; J2358